=== PATIENT | male | born 1960 | race Caucasian/White ===

== ENCOUNTER 2023-08-14 11:00 | Outpatient (RCR) | payer MEDICARE, MEDICAID, SELFPAY ==
[2023-06-17 13:57] VITALS: BP 116/63; PULSE 86
== END 2023-08-25 08:48 | disposition home or self-care (01) ==
LOC: HO.PT 11:00
PROVIDERS: PCP Registered Nurse; Visit Provider Registered Nurse
DX: G62.9 Polyneuropathy, unspecified (principal)
CPT/HCPCS: 97110; 97140; 97162; 97535

== ENCOUNTER 2023-08-15 11:00 | Outpatient (RCR) | payer MEDICARE, MEDICAID, SELFPAY | END 2023-08-15 11:32 | disposition home or self-care (01) | LOC: HO.OT 11:00 | PROVIDERS: PCP Registered Nurse; Visit Provider Registered Nurse | DX: G62.9 Polyneuropathy, unspecified (principal) | CPT/HCPCS: 29125; 97035; 97110; 97140; 97166; 97535; 97760 ==

== ENCOUNTER 2024-06-24 14:56 | Outpatient (RCR) | payer MEDICARE, MEDICAID, SELFPAY | END 2024-06-25 08:46 | disposition home or self-care (01) | LOC: HO.OT 14:56 | PROVIDERS: PCP Registered Nurse; Visit Provider Registered Nurse | DX: G56.03 Carpal tunnel syndrome, bilateral upper limbs (principal) | CPT/HCPCS: 97035; 97110; 97140; 97166 ==

== ENCOUNTER 2024-07-07 13:53 | Outpatient (AMB) | payer MEDICARE, MEDICAID, SELFPAY ==
--- NOTE | 2024-07-07 14:10 | MHC.OFFVIS ---
Vital Signs 07/07/24 14:11 Height 5 ft 5 in Weight 174 lb 4 oz BMI 29.0 Handedness Right Intake Visit Reasons: [employer]-Carpal tunnel syndrome, b/L upper limbs Intake Note: Cm is a 64 year old male who presents today for a new patient evaluation of carpal tunnel syndrome of bilateral upper limbs. Patient reports after he moved on 04/04/23 he experienced numbness in both of his hand. He followed up with his PCP who referred patient to neurology for tests. States he was told of having carpal tunnel and proceeded with OT/PT which helped and his symptoms subsided. However recently after playing his guitar his symptoms returned with his right hand being the worse. He returned back to OT however therapy did not help. He is here to discuss his options. Allergies No Known Allergies Allergy (Verified 07/07/24 14:12) HPI HPI [employer]-Carpal tunnel syndrome, b/L upper limbs: Details: Cm is a 64 year old male who presents today for a new patient evaluation of carpal tunnel syndrome of bilateral upper limbs. Patient reports after he moved on 04/04/23 he experienced numbness in both of his hand. He followed up with his PCP who referred patient to neurology for tests. States he was told of having carpal tunnel and proceeded with OT/PT which helped and his symptoms subsided. However recently after playing his guitar his symptoms returned with his right hand being the worse. He returned back to OT however therapy did not help. He is here to discuss his options. [facility] Surgical History (Updated 07/07/24 @ 14:13 by TAYLOR Frias) Hx of appendectomy History of lumbar surgery Hx of shoulder surgery Social History (Updated 07/07/24 @ 14:13 by TAYLOR Frias) Patient Tobacco Use Status: Never used Tobacco Current occupational status: retired Current occupation: right hand dominant Review of Systems Const All systems reviewed & are unremarkable except as noted in HPI and below Physical Exam Vital Signs: BMI result Body Mass Index 29.0 Extrem Other: Neuro: Normal sensation of the tips of all digits of bilateral hands in the office today No thenar or intrinsic wasting. Good APB muscle firing and good finger cross. Vascular: Capillary refill brisk. ROM: Patient can make a fist and extend all their digits. Skin: No lacerations or abrasions noted. General: No ecchymosis. No erythema or evidence of infection. Assessment & Plan Assessment & Plan (1) Bilateral carpal tunnel syndrome: Code(s): G56.03 - Carpal tunnel syndrome, bilateral upper limbs Category: Medical Plan 1. Bilateral carpal tunnel syndrome Symptoms intermittent, daily, worse at night I educated the patient about the condition. I discussed both operative and nonoperative treatment options. The risks and benefits of operative treatment were discussed with the patient and the patient wishes to proceed with surgery. These risks include, but are not limited to, risk of damage to blood vessels, nerves, tendons, infection, recurrence, incomplete relief of preoperative symptoms, persistent pain, possible need for further surgery, and the risks associated with regional blocks and/or anesthesia. Patient was also educated about the pre and postoperative course from this surgery Patient states he would like to have some time to think about surgery prior to getting signed up for any surgical intervention Patient is educated on the potential risks of prolonging treatment for carpal tunnel syndrome and expresses understanding of these Patient will follow-up when he is ready to discuss surgery, sooner with any acute concerns Coding Level of Care Code New Pt Level 4 (89661) Diagnoses Bilateral carpal tunnel syndrome G56.03
[2024-07-07 14:11] VITALS: BMI 29.0
--- OUTSIDE RECORDS SUMMARY | 2024-07-07 16:36 | XMS_ITS | Encounter Summary ---
Author Organization [facility] [place] [address] [place] [address] Care Team Providers Care Gauge Checker Name Role Phone Unavailable Primary Care Provider Unavailabl e Prior Encounters Date Type Department Care Team Description 04/26/2019 Converted CPS Chart Documents [facility] [address] [place] [address] <No scans attached> 04/26/2019 Converted 13x Documents [facility] [address] [place] [address] <No scans attached> Plan of Treatment Not on file Procedures Procedure Name Priority Date/Time Associated Diagnosis Comments PERIO MAINTENANCE Routine 12/05/2016 12: 00 AM PDT ORAL HYGIENE INSTRUCTIONS Routine 2016 12:00 AM PDT PERIO MAINTENANCE Routine 08/12/2016 12: 00 AM PDT ORAL HYGIENE INSTRUCTIONS Routine 2016 12:00 AM PDT 14 CEMENT CROWN Routine 06/22/2016 12:00 AM PDT SINGLE X-RAY Routine 06/22/2016 12:00 AM PDT SINGLE X-RAY Routine 06/22/2016 12:00 AM PDT 14 ENDODONTIC THERAPY, MOLAR TOOTH (EXCLUDING FINAL CONGREGATIONAL) Routine 06/19/2016 12:00 AM PDT 14 PULP VITALITY TESTS Routine 7 12:00 AM PDT 14 MUSICIAN INSTRUMENTAL CONSULT Routine 7 12:00 AM PST SINGLE X-RAY Routine 05/22/2016 12:00 AM PST 14 CORE BUILDUP, INCLUDING ANY PINS WHEN REQUIRED Routine 05/11/2016 12:00 AM PST 14 CERECFIRED CROWNPOST Routine 05/11/19 17 12:00 AM PST PERIO MAINTENANCE Routine 04/27/2016 12: 00 AM PST ORAL HYGIENE INSTRUCTIONS Routine 2016 12:00 AM PST CANCELLED APPOINTMENT Routine 03/06/2016 12:00 AM PST 1 EXT ADDITIONAL Routine 02/06/2016 12:0 0 AM PDT 19 CORE BUILDUP, INCLUDING ANY PINS WHEN REQUIRED Routine 02/06/2016 12:00 AM PDT 19 CEMENT CROWN Routine 02/06/2016 12:00 AM PDT 19 CERECFIRED CROWNPOST Routine 02/06/20 12:00 AM PDT SINGLE X-RAY Routine 02/06/2016 12:00 AM PDT PERIO MAINTENANCE Routine 01/27/2016 12: 00 AM PDT ORAL HYGIENE INSTRUCTIONS Routine 2015 12:00 AM PDT PLAN VISIT FEE Routine 09/30/2015 12:00 AM PDT PERIODIC ORAL EVALUATION - ESTABLISHED PATIENT Routine 09/30/2015 12:00 AM PDT PERIO MAINTENANCE Routine 09/30/2015 12: 00 AM PDT ORAL HYGIENE INSTRUCTIONS Routine 2015 12:00 AM PDT BITEWINGS - FOUR RADIOGRAPHIC IMAGES Routine 09/30/2015 12:00 AM PDT ADDITIONAL X-RAY Routine 09/30/2015 12:0 0 AM PDT ADDITIONAL X-RAY Routine 09/30/2015 12:0 0 AM PDT ADDITIONAL X-RAY Routine 09/30/2015 12:0 0 AM PDT ADDITIONAL X-RAY Routine 09/30/2015 12:0 0 AM PDT ADDITIONAL X-RAY Routine 09/30/2015 12:0 0 AM PDT SINGLE X-RAY Routine 09/30/2015 12:00 AM PDT CANCELLED APPOINTMENT Routine 05/27/2015 12:00 AM PST UR PERIODONTAL SCALING AND ROOT PLANING - FOUR OR MORE TEETH PER QUADRANT Routine 02/25/2015 12:00 AM PST UL PERIODONTAL SCALING AND ROOT PLANING - FOUR OR MORE TEETH PER QUADRANT Routine 02/25/2015 12:00 AM PST LR PERIODONTAL SCALING AND ROOT PLANING - FOUR OR MORE TEETH PER QUADRANT Routine 02/25/2015 12:00 AM PST LL PERIODONTAL SCALING AND ROOT PLANING - FOUR OR MORE TEETH PER QUADRANT Routine 02/25/2015 12:00 AM PST ORAL HYGIENE INSTRUCTIONS Routine 2014 12:00 AM PST COMPREHENSIVE ORAL EVALUATION - NEW OR ESTABLISHED PATIENT Routine 02/16/2015 12:00 AM PST PANORAMIC RADIOGRAPHIC IMAGE Routine 02/15/2015 12:00 AM PST INTRAORAL - COMPREHENSIVE SERIES OF RADIOGRAPHIC IMAGES Routine 02/15/2015 12:00 AM PST INTRAORAL PHOTO Routine 02/15/2015 12:00 AM PST INTRAORAL PHOTO Routine 02/15/2015 12:00 AM PST INTRAORAL PHOTO Routine 02/15/2015 12:00 AM PST INTRAORAL PHOTO Routine 02/15/2015 12:00 AM PST Visit Diagnoses Not on file
--- OUTSIDE RECORDS SUMMARY | 2024-07-07 16:37 | XMS_ITS | Clinical Summary ---
Author Organization [facility] [place] Address [address] [place] [address] Care Team Providers Care Grain Cleaner Name Role Phone Unavailable Primary Care Provider Unavailabl e Social History Tobacco Use Types Packs/Day Years Used Date Smoking Tobacco: Never Assessed Sex and Gender Information Value Date Recorded Sex Assigned at Not on file Legal Sex Male 6:35 AM PST Gender Identity Not on file Sexual Orientation Not on file Plan of Treatment Not on file
== END 2024-07-07 14:39 | disposition home or self-care (01) ==
LOC: HO.HOS 13:54
PROVIDERS: PCP Registered Nurse
DX: G56.03 Carpal tunnel syndrome, bilateral upper limbs (principal)
CPT/HCPCS: 99203

== ENCOUNTER → 2024-07-07 13:53 | Outpatient (BNVA) | payer MEDICARE, MEDICAID, SELFPAY | PROVIDERS: PCP Registered Nurse | DX: G56.03 Carpal tunnel syndrome, bilateral upper limbs (principal) | CPT/HCPCS: 99202 ==